=== PATIENT | female | born 1975 | race Two or more races ===

== ENCOUNTER 2018-12-02 19:25 | Emergency (ER) | payer BC, MEDICAID ==
[~2018-12-02] VITALS: Ht 162.6 cm; Wt 63.5 kg
[2018-12-02] MEDS ORDERED: LORazepam 2MG/ML-1ML VIAL ONE (19:41)
[2018-12-02] MEDS ORDERED: LORazepam 2MG/ML-1ML VIAL IV ONE (19:45)
[2018-12-02 23:31] LABS: Eosinophils # (auto) 0.1 uL; Mean Corpuscular Volume 64.6 fL (80.0-100.0); Monocytes # (auto) 0.3 uL
[2018-12-02 23:32] LABS: Basophils # (auto) 0 uL; Basophils % (auto) 0.7 % (0.0-2.0); Eosinophils % (auto) 1.3 % (0.0-7.0); Hematocrit 32.3 % (36.0-46.0); Hemoglobin 9.8 g/dL (12.2-16.2); Lymphocytes # (auto) 2.2 uL; Lymphocytes % (auto) 35.7 % (10.0-50.0); Mean Corpuscular Hemoglobin 19.7 pg (28.0-32.0); Mean Corpuscular Hgb Conc. 30.4 g/dL (32.0-36.0); Monocytes % (auto) 4.1 % (0.0-12.0); Neutrophils # (auto) 3.6 uL; Neutrophils % (auto) 58.2 % (37.0-80.0); Platelet Count (auto) 225 10^3/uL (140-450); Red Cell Distribution Width 18.8 % (11.8-14.3); White Blood Cell 6.3 10^3/uL (4.4-10.8)
[2018-12-02 23:46] LABS: INR 0.95 (0.9-1.15); Partial Thromboplastin Time 23.1 sec (23.78-33.04); Prothrombin Time 10.2 sec (9.27-12.13)
[2018-12-02 23:54] LABS: Alanine Aminotransferase 30 U/L (13-56); Albumin 3.6 g/dL (3.4-5.0); Anion Gap 10 (5-15); Aspartate Aminotransferase 32 U/L (15-37); BUN/Creatinine Ratio 13.3; Blood Urea Nitrogen 8 mg/dL (7-18); Calcium 8.1 mg/dL (8.5-10.1); Carbon Dioxide 21 mmol/L (21-32); Chloride 109 mmol/L (98-107); GFR African American 142 mL/min; GFR Non-African American 117 mL/min; Glucose 85 mg/dL (74-106); Magnesium 2.3 mg/dL (1.6-2.6); Potassium 3.4 mmol/L (3.5-5.1); Sodium 140 mmol/L (136-145)
[2018-12-02 23:59] LABS: Alkaline Phosphatase 61 U/L (45-117); Bilirubin, Total 0.2 mg/dL (0.2-1.0); Total Protein 8.1 g/dL (6.4-8.2)
[2018-12-03 03:28] VITALS: BP 136/96
== END 2018-12-03 03:48 | disposition home or self-care (01) ==
LOC: EDBD 19:25 → ER 19:36
DX: F10.121 Alcohol abuse with intoxication delirium (principal); F17.210 Nicotine dependence, cigarettes, uncomplicated; I10 Essential (primary) hypertension; Z90.49 Acquired absence of other specified parts of digestive tract; Y90.0 Blood alcohol level of less than 20 mg/100 ml
CPT/HCPCS: 36415; 71045; 80053; 80320; 83735; 83880; 84443; 84484; 85025; 85610; 85730; 93005; 94761; 96374; 99284; J2060; J7030

== ENCOUNTER 2021-07-28 16:12 | Emergency (ER) | payer BC, MEDICAID ==
[~2021-07-28] VITALS: Ht 154.9 cm; Wt 59.0 kg
[2021-07-28] MEDS ORDERED: LORazepam 0.5 MG TAB PO ONE (17:15)
[2021-07-28] MEDS ORDERED: cloNIDine HCL 0.1 MG TAB PO ONE (17:45)
[2021-07-28 19:29] LABS: Albumin 4.2 g/dL (3.4-5.0); Calcium 8.9 mg/dL (8.5-10.1); Potassium 3.7 mmol/L (3.5-5.1)
[2021-07-28 19:31] LABS: BUN/Creatinine Ratio 14.7
[2021-07-28 19:35] LABS: Bilirubin, Total 0.5 mg/dL (0.2-1.0); Total Protein 8.4 g/dL (6.4-8.2)
[2021-07-28 19:47] LABS: Basophils # (auto) 0 10 ^3/uL (0-0.2); Basophils % (auto) 0.6 % (0.0-2.0); Eosinophils # (auto) 0 10 ^3/uL (0-0.8); Eosinophils % (auto) 0.5 % (0.0-7.0); Hematocrit 45.7 % (36.0-46.0); Hemoglobin 15.6 g/dL (12.2-16.2); Lymphocytes # (auto) 1.5 10 ^3/uL (0.4-5.4); Lymphocytes % (auto) 24.3 % (10.0-50.0); Mean Corpuscular Hemoglobin 33.8 pg (28.0-32.0); Mean Corpuscular Volume 99.2 fL (80.0-100.0); Monocytes # (auto) 0.3 10 ^3/uL (0-1.3); Monocytes % (auto) 4.2 % (0.0-12.0); Neutrophils # (auto) 4.5 10 ^3/uL (1.6-8.6); Neutrophils % (auto) 70.4 % (37.0-80.0); Nucleated Red Blood Cells % 0.2 %; Red Blood Cells 4.61 10^6/uL (4.0-5.20); Red Cell Distribution Width 14.2 % (11.8-14.3); White Blood Cell 6.3 10^3/uL (4.4-10.8)
[2021-07-29 00:40] VITALS: BP 156/92
[2021-07-29] MEDS ORDERED: METO25TA5 PO (01:09)
[2021-07-29] MEDS ORDERED: AML5T PO (01:09)
== END 2021-07-29 01:00 | disposition home or self-care (01) ==
LOC: ER 16:12 → EDBD 16:12 → EDUNIT# 16:12 → ER 07-29 01:00
DX: I10 Essential (primary) hypertension (principal); F41.9 Anxiety disorder, unspecified; F17.210 Nicotine dependence, cigarettes, uncomplicated; Z90.49 Acquired absence of other specified parts of digestive tract; Z98.890 Other specified postprocedural states
CPT/HCPCS: 36415; 70450; 71045; 80053; 84484; 85025; 93005

== ENCOUNTER 2024-02-03 09:34 | Emergency (ER) | payer BC, MEDICAID ==
[~2024-02-03] VITALS: Ht 152.4 cm; Wt 73.0 kg
[~2024-02-03 09:34] MED LIST: AML5T PO; METO25TA5 PO
[2024-02-03] MEDS ORDERED: NAPR-746 PO (12:22)
[2024-02-03] MEDS ORDERED: CYCL-837 PO (12:22)
[2024-02-03 12:23] VITALS: BP 144/99; PULSE 84; RESP 18; TEMP 96.9; O2SAT 97
== END 2024-02-03 14:51 | disposition home or self-care (01) ==
LOC: ER 09:34
DX: M54.2 Cervicalgia (principal); M54.59 Other low back pain; I10 Essential (primary) hypertension; F17.210 Nicotine dependence, cigarettes, uncomplicated; Z98.890 Other specified postprocedural states; Z79.899 Other long term (current) drug therapy; V98.8XXA Other specified transport accidents, initial encounter; Y93.89 Activity, other specified; Y92.89 Other specified places as the place of occurrence of the external cause; Y99.8 Other external cause status
CPT/HCPCS: 72040